=== PATIENT | male | born 1985 | race Caucasian/White ===

== ENCOUNTER 2021-06-28 07:33 | Emergency (ER) | payer OTHER ==
[2021-06-28] MEDS ORDERED: Ondansetron 4 MG/2 ML SDV IVPUSH ONE (08:01)
[2021-06-28] MEDS ORDERED: Sodium Chloride 0.9% 10 ML Syringe FLUSH PRN (08:01)
[2021-06-28] MEDS ORDERED: Sodium Chloride 0.9% 1,000 ML IV SCH (08:15)
--- NOTE | 2021-06-28 09:26 | EDM.PDOC ---
ED HPI GENERAL MEDICAL PROBLEM - General Chief Complaint: Gastrointestinal Problem Stated Complaint: NAUSEA Time Seen by Provider: 06/28/21 08:11 Source of Information: Reports: Patient History Limitations: Reports: No Limitations, Other (ED vital signs reveal a temp of 98.6, pulse 113, respiratory rate of 20, blood pressure 08/08/1988, pulse ox 95% on room air.) - History of Present Illness INITIAL COMMENTS - FREE TEXT/NARRATIVE: 36-year-old male presents emergency department today with complaints of vomiting, diarrhea, body aches, fever and generalized abdominal cramping that started yesterday around 3 PM. He states he has been unable to keep any food or fluids down. States he is otherwise healthy. He states he has had his Covid vaccines with the second dose being given in April. He states shortly after his second vaccine he spent however family did have Covid. States he also tried to take Zofran at home and this is not helped. States he is otherwise healthy. - Related Data Allergies Allergy/AdvReac Type Severity Reaction Status Date / Time amoxicillin [Amoxicillin] Allergy Cannot Verified 06/28/21 07:56 Remember cephalexin [Cephalexin] Allergy Swelling Verified 06/28/21 07:56 Penicillins Allergy Cannot Verified 06/28/21 07:56 Remember Home Meds: Home Meds Lansoprazole [Prevacid] 15 mg PO DAILY 06/28/21 [History] Ondansetron [Zofran ODT] 4 mg PO Q6H PRN #20 tab.dis 06/28/21 [Rx] Past Medical History - Past Health History Medical/Surgical History: Denies Medical/Surgical History Gastrointestinal History: Reports: GERD - Past Surgical History HEENT Surgical History: Reports: Other (See Below) Other HEENT Surgeries/Procedures: eye surgery ED ROS GENERAL - Review of Systems Review Of Systems: Comprehensive ROS is negative, except as noted in HPI. ED EXAM, GI/ABD - Physical Exam Exam: See Below Exam Limited By: No Limitations General Appearance: Alert, WD/WN, Mild Distress Ears: Normal External Exam, Hearing Grossly Normal Nose: Normal Inspection Throat/Mouth: Normal Inspection, Normal Lips, Normal Voice, No Airway Compromise Head: Atraumatic, Normocephalic Neck: Normal Inspection, Supple, Non-Tender, Full Range of Motion Respiratory/Chest: No Respiratory Distress, Lungs Clear, Normal Breath Sounds, No Accessory Muscle Use, Chest Non-Tender Cardiovascular: Normal Peripheral Pulses, Regular Rate, Rhythm, No Edema, No Murmur, Tachycardia GI/Abdominal Exam: Normal Bowel Sounds, Soft, No Distention, Tender (Male) Exam: Deferred Rectal (Males) Exam: Deferred Back Exam: Normal Inspection Extremities: Normal Inspection Neurological: Alert, Oriented, Normal Cognition Psychiatric: Normal Affect, Normal Mood Skin Exam: Warm, Dry, Intact, Normal Color, No Rash Lymphatic: No Adenopathy Course - Vital Signs Text/Narrative:: As stated above, patient presents with history of nausea, vomiting and diarrhea that started approximately 1500 yesterday. States he has generalized abdominal cramping that is intermittent. Currently not having any abdominal discomfort. Primary area of discomfort is located in the epigastric area. Physical exam is essentially unremarkable. He is slightly tachycardic.Orthostatic vital signs reveal supine blood pressure of 117/78 with a heart rate of 88. Standing blood pressure 116/88 with a pulse of 109. Patient does appear to be slightly dehydrated. Will obtain lab studies as well as give the patient a liter of normal saline IV and Zofran 4 mg IV. Patient notified that should his abdominal discomfort return to notify nursing staff. Last Recorded V/S: Last Vital Signs Temp 98.6 F 06/28/21 07:52 Pulse 113 H 06/28/21 07:52 Resp 20 06/28/21 07:52 BP 124/89 06/28/21 07:52 Pulse Ox 95 06/28/21 07:52 Orthostatic Blood Pressure [ 116/88 Standing] Orthostatic Blood Pressure [ 117/78 Supine] - Orders/Labs/Meds Orders: Active Orders 24 hr Category Date Time Status Orthostatic Vital Signs [RC] ASDIRECTED Care 06/28/21 08:01 Active Peripheral IV Care [RC] . DIRECTED Care 06/28/21 08:01 Active Abdomen 1V Flat [CR] Stat Exams 06/28/21 09:31 Taken Sodium Chloride 0.9% [Saline Flush] Med 06/28/21 08:01 Active 10 ml FLUSH ASDIRECTED PRN Peripheral IV Insertion Adult [OM.PC] Stat Oth 06/28/21 08:01 Ordered Medication Orders Sodium Chloride (Sodium Chloride 0.9% 10 Ml Syringe) 10 ml FLUSH ASDIRECTED PRN PRN Reason: Keep Vein Open Last Admin: 06/28/21 08:56 Dose: 10 ml Documented by: [email or web address] Labs: Laboratory Tests 06/28/21 06/28/21 06/28/21 Range/Units 08:20 08:20 08:20 WBC 6.51 (4.23-9.07) K/mm3 RBC 5.57 (4.63-6.08) M/mm3 Hgb 16.5 (13.7-17.5) gm/dl Hct 50.7 (40.1-51.0) % MCV 91.0 (79.0-92.2) fl MCH 29.6 (25.7-32.2) pg MCHC 32.5 (32.2-35.5) g/dl RDW Std Deviation 45.1 H (35.1-43.9) fL Plt Count 230 (163-337) K/mm3 MPV 11.3 (9.4-12.3) fl Neut % (Auto) 80.5 H (34.0-67.9) % Lymph % (Auto) 8.1 L (21.8-53.1) % [place] % (Auto) 9.5 (5.3-12.2) % Eos % (Auto) 1.2 (0.8-7.0) Baso % (Auto) 0.5 (0.1-1.2) % Neut # (Auto) 5.24 (1.78-5.38) K/mm3 Lymph # (Auto) 0.53 L (1.32-3.57) K/mm3 [place] # (Auto) 0.62 (0.30-0.82) K/mm3 Eos # (Auto) 0.08 (0.04-0.54) K/mm3 Baso # (Auto) 0.03 (0.01-0.08) K/mm3 Sodium 140 (136-145) mEq/L Potassium 4.0 (3.5-5.1) mEq/L Chloride 105 (98-107) mEq/L Carbon Dioxide 22 (21-32) mEq/L Anion Gap 17.0 H (5-15) BUN 15 (7-18) mg/dL Creatinine 1.0 (0.7-1.3) mg/dL Est Cr Clr Drug Dosing 102.12 mL/min Estimated GFR (MDRD) > 60 (>60) mL/min BUN/Creatinine Ratio 15.0 (14-18) Glucose 112 H (70-99) mg/dL Calcium 8.6 (8.5-10.1) mg/dL Magnesium 1.9 (1.8-2.4) mg/dL Total Bilirubin 0.8 (0.2-1.0) mg/dL AST 22 (15-37) U/L ALT 18 (16-63) U/L Alkaline Phosphatase 49 (46-116) U/L C-Reactive Protein 4.7 H* (<1.0) mg/dL Total Protein 6.9 (6.4-8.2) g/dl Albumin 4.0 (3.4-5.0) g/dl Globulin 2.9 gm/dL Albumin/Globulin Ratio 1.4 (1-2) Lipase 81 (73-393) U/L SARS-CoV-2 RNA (YONNY) Negative (NEGATIVE) Meds: Medications Generic Name Dose Route Start Last Admin Trade Name Freq PRN Reason Stop Dose Admin Sodium Chloride 10 ml 06/28/21 08:01 06/28/21 08:56 Sodium Chloride 0.9% 10 Ml Syringe FLUSH 10 ml ASDIRECTED PRN Administration Keep Vein Open Discontinued Medications Generic Name Dose Route Start Last Admin Trade Name Freq PRN Reason Stop Dose Admin Sodium Chloride 1,000 mls @ 999 mls/hr 06/28/21 08:15 06/28/21 08:56 Normal Saline IV 06/28/21 09:14 999 mls/hr Q1H [id number] Administration Ondansetron HCl 4 mg 06/28/21 08:01 06/28/21 08:56 Ondansetron 4 Mg/2 Ml Sdv IVPUSH 06/28/21 08:02 4 mg ONETIME ONE Administration - Radiology Interpretation Free Text/Narrative:: Nothing acute is appreciated on left side of the abdomen. Formal radiologist report is pending. - Re-Assessments/Exams Free Text/Narrative Re-Assessment/Exam: 06/28/21 09:42 Hematology reveals a WBC of 6.41, hemoglobin 16.5, hematocrit 50.7, platelet count 230 Chemistry reveals a sodium of 140, potassium 4.0, carbon dioxide 22, anion gap 17.0, BUN 15, creatinine 1.0, GFR greater than 60, glucose 112, magnesium 1.9, C-reactive protein 4.7, lipase 81 Patient is Covid negative Nothing acute is appreciated on flatplate of the abdomen. 06/28/21 10:21 Patient states he is feeling better after receiving IV fluids and Zofran. He feels he is ready to go home. Will be discharged home with recommendations that he only drink clear liquids for the next 24 hours and then advance to a bland diet. We will send a prescription for Zofran ODT to his pharmacy. Departure - Departure Time of Disposition: 10:22 Disposition: Home, Self-Care 01 Condition: Good Clinical Impression: Gastroenteritis - Discharge Information Prescriptions: Ondansetron [Zofran ODT] 4 mg PO Q6H PRN #20 tab.dis PRN Reason: Nausea/Vomiting Instructions: Viral Gastroenteritis, Adult, [id number], Diarrhea, Adult, [id number], Food Choices to Help Relieve Diarrhea, Adult Referrals: Nura Pinzon MD [Primary Care Provider] - Forms: ED Department Discharge Additional Instructions: You were seen in the emergency department today with for evaluation of nausea, vomiting and abdominal pain. While in the emergency department you did receive IV fluids and nausea medication. Lab studies as well as an x-ray of the abdomen were completed and were essentially unremarkable. You did appear slightly dehydrated. X-ray of the abdomen was essentially unremarkable. You likely will start to feel better in the next 24 hours. Recommend clear liquids only for the next 24 hours and then advance to a bland diet as tolerated. Be sure to drink plenty of fluids such as Gatorade or Powerade and get plenty rest. Should your condition worsen or change, do not hesitate returning the emergency department. Sepsis Event Note (ED) - Evaluation Sepsis Screening Result: No Definite Risk - Focused Exam Vital Signs: Vital Signs Temp Pulse Resp BP Pulse Ox 06/28/21 07:52 98.6 F 113 H 20 124/89 95 - My Orders Last 24 Hours: My Active Orders 06/28/21 09:31 Abdomen 1V Flat [CR] Stat - Assessment/Plan Last 24 Hours: My Active Orders 06/28/21 09:31 Abdomen 1V Flat [CR] Stat
--- NOTE | 2021-06-28 10:26 | CR ---
Abdomen: Supine view of the abdomen was obtained. Comparison: No prior abdominal x-ray is available. Bowel gas pattern is normal. Bony structures appear within normal limits for the patient's age. No abnormal calcifications or soft tissue abnormality is appreciated. Impression: 1. Nothing acute is seen on supine abdominal x-ray. Diagnostic code #1
== END 2021-06-28 10:30 | disposition home or self-care (01) ==
LOC: JD.ED 07:33
DX: K52.9 Noninfective gastroenteritis and colitis, unspecified (principal); R11.10 Vomiting, unspecified; K21.9 Gastro-esophageal reflux disease without esophagitis; Z88.0 Allergy status to penicillin; Z88.1 Allergy status to other antibiotic agents; Z79.899 Other long term (current) drug therapy; Z20.822 Contact with and (suspected) exposure to COVID-19
CPT/HCPCS: 36415; 74018; 80053; 83690; 83735; 85025; 86140; 87635; 96374; 99284; J2405; J7030; U0002